=== PATIENT | male | born 2000 | race African-American/Black ===

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

== ENCOUNTER 2021-07-23 20:06 | Emergency (ER) | payer BC ==
[2021-07-23 20:32] VITALS: BP 109/58; PULSE 89; TEMP 98.1; BMI 21.7
[2021-07-23 22:05] LABS: BASO % 1.3 % (0-2.0); EOS % 3.5 % (0-4.5); HEMATOCRIT 37.6 % (35.4-49); HEMOGLOBIN 12.8 GM/dL (11.7-16.9); MCH 28.7 pg (25.7-33.7); MEAN CELL VOLUME 84.3 fl (80-96); MEAN PLT VOLUME 6.6 fl (7.5-11.1); MONO % 14.4 % (3.8-10.2); NEUT % 30.8 % (42.8-82.8); PLATELET COUNT 248 10^3/uL (134-434); RBC 4.46 M/mm3 (4.00-5.60); RDW 12.9 % (11.9-15.9); WHITE BLOOD COUNT 3.8 K/mm3 (4.0-10.0)
[2021-07-23 22:13] LABS: CHLORIDE 107 mmol/L (98-107); SODIUM 139 mmol/L (136-145)
[2021-07-23 22:17] LABS: ANION GAP 3 MMOL/L (8-16); CALCIUM 8.9 mg/dL (8.5-10.1); CO2 30 mmol/L (21-32)
[2021-07-23 22:18] LABS: GLUCOSE,RANDOM 80 mg/dL (74-106)
[2021-07-23 22:20] LABS: SGPT/ALT 29 U/L (13-61)
[2021-07-23 22:21] LABS: CREATININE 1.1 mg/dL (0.55-1.3); SGOT/AST 16 U/L (15-37)
[2021-07-23 22:22] LABS: BILIRUBIN,TOTAL 0.5 mg/dL (0.2-1); TOT PROT 7.5 g/dl (6.4-8.2)
[2021-07-23 22:23] LABS: ALK PHOS 81 U/L (45-117)
== END 2021-07-23 23:09 | disposition home or self-care (01) ==
LOC: JER 20:06 → JERFT 20:06
DX: R07.9 Chest pain, unspecified (principal)
CPT/HCPCS: 36415; 71046-TC-FY; 80053; 82550; 82553; 84484; 85025; 85379; 93005; 93010; 99285-25